=== PATIENT | male | born 1985 | race Caucasian/White ===

== ENCOUNTER 2021-10-25 13:21 | Outpatient (REF) | payer BC, SELFPAY ==
[2021-10-25 15:27] LABS: Vitamin B12 535 pg/mL (200-900)
== END 2021-10-25 13:22 | disposition home or self-care (01) ==
LOC: HO.LAB 13:21
PROVIDERS: PCP Physician Assistant; Visit Provider Psychiatry & Neurology Neurology
DX: R68.89 Other general symptoms and signs (principal)
CPT/HCPCS: 36415; 82607